=== PATIENT | female | born 1990 | race Caucasian/White ===

== ENCOUNTER 2021-03-15 12:09 | Emergency (ER) | payer OTHER ==
[~2021-03-15] VITALS: Ht 172.7 cm; Wt 71.4 kg
--- NOTE | 2021-03-15 12:28 | NUR ---
BIBS FOR C/O HEADACHE 11/01 X2 WEEKS. DENIES N/V. NO CHANGE IN VISION. WILL CONTINUE TO MONITOR THE PATIENT
--- NOTE | 2021-03-15 12:38 | NUR ---
DR OCASIO AT THE BEDSIDE
[2021-03-15] MEDS ORDERED: HYDROCODONE/APAP 5/325MG TABLET ONE (12:54)
[2021-03-15] MEDS: HYDROCODONE/APAP 5/325MG TABLET PO ONE (12:57)
--- NOTE | 2021-03-15 13:02 | NUR ---
URINE COLLECTED AND SENT TO THE LAB
--- NOTE | 2021-03-15 13:33 | NUR ---
THE PATIENT IS TAKEN TO CT
--- NOTE | 2021-03-15 13:46 | NUR ---
THE PATIENT IS BACK FROM CT
[2021-03-15] MEDS ORDERED: AMOX-430 PO (13:59)
[2021-03-15] MEDS ORDERED: ACET1TAB23 PO (13:59)
[2021-03-15 14:31] VITALS: BP 128/67
--- NOTE | 2021-03-15 14:31 | NUR ---
Patient discharged to home in stable condition. Written and verbal after care instructions given. Patient verbalizes understanding of instruction.
== END 2021-03-15 14:32 | disposition home or self-care (01) ==
LOC: ER 12:14
DX: R51.9 Headache, unspecified (principal); E10.9 Type 1 diabetes mellitus without complications
CPT/HCPCS: 70450-TC; 84703-TC